=== PATIENT | female | born 1970 | race Caucasian/White ===

== ENCOUNTER → 2017-12-17 15:15 | Day surgery (SDC) | payer OTHER ==
[~2017-12-17 15:15] MED LIST: Buffered Lidocaine 0.9% SYRIN* 5 ML/SYR SYRINGE INTRADERM ONE; Dexamethasone IV* 4 MG/ML 1 ML (4 MG) ONE; Famotidine IV* 10 MG/ML 2 ML (20 mg) IV ONE; Famotidine IV* 10 MG/ML 2 ML (20 mg) ONE; Ketorolac INJ* 30 MG/ML 1 ML VIAL ONE; Lidocaine 2% PF * 5 ML VIAL ONE; Midazolam* 1 MG/ML 5 ML VIAL (5 MG) ONE; Ondansetron INJ* 2 MG/ML VIAL ONE; Propofol* 10 MG/ML 20 ML BTL IV PUSH ONE; ROPIVACAINE 5 MG/ML 30 ML BTL (0.5%) ONE; ceFAZolin 2 GM in NS PREMIX(*) 2 GM/100 ML BAG IVPB ONE; fentaNYL* 50 MCG/ML 2 ML VIAL (100 MCG VIAL) ONE
[2017-12-17 15:23] VITALS: BP 132/75
--- NOTE | 2017-12-18 14:54 | OP ---
DATE OF OPERATION: 12/17/17 - [facility] DATE OF : 68 SURGEON: Giovanny Warner MD DIRECTOR OF QUALITY CONTROL: KIRBY Sen. An household assistant was needed for the entirety of the procedure to aid in positioning of the arm and retraction. ANESTHESIOLOGIST: Dr. Swanson. ANESTHESIA: General. PRE-OP DIAGNOSES: 1. Left carpal tunnel syndrome. 2. Left cubital tunnel syndrome. POST-OP DIAGNOSES: 1. Left carpal tunnel syndrome. 2. Left cubital tunnel syndrome. OPERATIVE PROCEDURE: 1. Left open carpal tunnel release. 2. Left in situ cubital tunnel release. INDICATIONS: Anastasia has had progressive numbness and tingling in the left hand that is bothering her quite a bit. She is having isolated symptoms in the ring and small fingers as well. Electrodiagnostic studies showed carpal tunnel syndrome. We talked about risks and benefits including risk of nerve injury, risk of wound problem, risk of persistent pain despite surgery. She had wanted to proceed. ESTIMATED BLOOD LOSS: 2 mL COMPLICATIONS: None. FINDINGS: See above and below. DESCRIPTION OF PROCEDURE: Anastasia was seen in the preoperative holding area. The correct side, site, and procedure were identified. We came back to the operating room and the arm was prepped and draped in the usual fashion. A time- out was performed. The arm was exsanguinated with the Esmarch and the tourniquet was inflated to 250 mmHg. A 2- to 3-cm longitudinal incision was made in the proximal palm. Dissection was carried down through the subcutaneous tissue and palmar fascia. The transverse carpal ligament was released off the radial aspect of the hook of the hamate from distal to proximal. Proximally, the subcutaneous tissue and fascia was released with the tenotomy scissors and then a Jorge retractor was placed. The distal antebrachial fascia and the remainder of the transverse carpal ligament were released under direct observation. Once the release was completed distally and proximally, there was absolutely no compression on the nerve, the wound was irrigated out, the skin was closed with 4-0 nylon suture. I then abducted and externally rotated the arm. A curvilinear incision was made centered over her Ramos's ligament. Dissection was carried down and the medial antebrachial cutaneous nerve was preserved. I released the fascia over- lying the ulnar nerve just proximal to the Ramos's ligament. he release was carried past the arcade of Joe, I came down and released the Ramos's ligament and the FCU fascia, both the superficial fascia as well as the subfascial layers. This was completed to a level well distal to the medial epicondyle. I then checked for stability, there was no subluxation of the nerves. So, we irrigated out the wounds. Hemostasis was obtained with the Bovie. The subcutaneous tissue was reapproximated with 3-0 Vicryl, the skin was closed with 3-0 Monocryl suture, and Steri-Strips. The operative area was infiltrated with ropivacaine. Wounds were then dressed with soft dressings. Tourniquet was deflated and she was taken to the recovery room in stable condition. [id number] #: [id number] STEFAN
== END | disposition home or self-care (01) ==
LOC: OREAST 15:15
PROVIDERS: ATTEND Orthopaedic Surgery Hand Surgery
DX: G56.02 Carpal tunnel syndrome, left upper limb (principal); G56.22 Lesion of ulnar nerve, left upper limb; J30.2 Other seasonal allergic rhinitis; Z87.442 Personal history of urinary calculi; Z87.891 Personal history of nicotine dependence
CPT/HCPCS: J0690; J1100; J1885; J2250; J2405; J2704; J2795; J3010